=== PATIENT | male | born 1970 | race Caucasian/White ===

== ENCOUNTER 2021-05-12 16:17 | Emergency (ER) | payer OTHER ==
[2021-05-12 18:21] LABS: BASOPHIL 0.5 % (0-2); EOSINOPHIL 1.2 % (0-5); HCT 56.2 % (42.0-52.0); HGB 18.6 g/dl (13.2-18.0); LYMPHOCYTE 18.5 % (15-48); MCH 28.5 pg (25.0-31.0); MCHC 33.1 g/dL (32.0-36.0); MCV 86.2 fL (78.0-100.0); MONOCYTE 8.4 % (0-12); MPV 10.4 fL (6.0-9.5); NEUTROPHIL 70.8 % (41-80); NRBC 0; PLT 246 K/uL (150-400); RBC 6.52 M/uL (4.70-6.00); RDW 13.3 % (11.5-14.0); WBC 9.8 K/uL (4.0-10.5)
[2021-05-12 18:46] LABS: ALBUMIN 4.4 g/dL (3.4-5.0); BUN/CREAT RATIO (CALC) 15.4 RATIO; CREATININE 1.04 mg/dL (0.67-1.17); GLOBULIN (CALCULATION) 3.5 g/dL; TOTAL PROTEIN 7.9 g/dL (6.4-8.2)
== END 2021-05-12 20:50 | disposition home or self-care (01) ==
LOC: FER 16:17
PROVIDERS: Emergency Medicine
DX: S16.1XXA Strain of muscle, fascia and tendon at neck level, initial encounter (principal); S20.219A Contusion of unspecified front wall of thorax, initial encounter; S80.211A Abrasion, right knee, initial encounter; I10 Essential (primary) hypertension; Z79.899 Other long term (current) drug therapy; V43.52XA Car driver injured in collision with other type car in traffic accident, initial encounter; Y92.410 Unspecified street and highway as the place of occurrence of the external cause
CPT/HCPCS: 36415; 71260; 72125; 80053; 85025; J1170; J2405; Q9967